=== PATIENT | male | born 1995 | race African-American/Black ===

== ENCOUNTER 2016-11-11 17:59 | Emergency (ER) | payer SELFPAY ==
[~2016-11-11] VITALS: Wt 83.9 kg
== END 2016-11-11 20:04 | disposition home or self-care (01) ==
LOC: ED 17:59
DX: S63.257A Unspecified dislocation of left little finger, initial encounter (principal); F17.200 Nicotine dependence, unspecified, uncomplicated; W21.05XA Struck by basketball, initial encounter; Y93.67 Activity, basketball; Y92.89 Other specified places as the place of occurrence of the external cause; Y99.9 Unspecified external cause status

== ENCOUNTER 2017-02-02 05:47 | Emergency (ER) | payer SELFPAY ==
[~2017-02-02] VITALS: Ht 172.7 cm; Wt 81.6 kg
[2017-02-02] MEDS ORDERED: Motrin,Rufen800 MG PO (07:40)
== END 2017-02-02 07:47 | disposition home or self-care (01) ==
LOC: ED 05:47
DX: S62.001A Unspecified fracture of navicular [scaphoid] bone of right wrist, initial encounter for closed fracture (principal); F17.200 Nicotine dependence, unspecified, uncomplicated; X50.9XXA Other and unspecified overexertion or strenuous movements or postures, initial encounter; Y93.89 Activity, other specified; Y92.9 Unspecified place or not applicable; Y99.9 Unspecified external cause status

== ENCOUNTER 2017-04-28 20:35 | Emergency (ER) | payer SELFPAY ==
[~2017-04-28] VITALS: Ht 177.8 cm; Wt 83.9 kg
[~2017-04-28 20:35] MED LIST: Motrin,Rufen800 MG PO
[2017-04-28] MEDS ORDERED: DELTASONE20 M1 PO (21:24)
== END 2017-04-28 20:48 | disposition home or self-care (01) ==
LOC: ED 20:35
DX: R21 Rash and other nonspecific skin eruption (principal); F17.200 Nicotine dependence, unspecified, uncomplicated

== ENCOUNTER 2017-05-03 09:12 | Emergency (ER) | payer SELFPAY ==
[~2017-05-03 09:12] MED LIST changes: +DELTASONE20 M1 PO
[2017-05-03] MEDS ORDERED: NAPROSYN500 MG PO ×2 (09:22→09:27)
== END 2017-05-03 10:00 | disposition left against medical advice (07) ==
LOC: ED 09:12
DX: M79.641 Pain in right hand (principal); M25.531 Pain in right wrist; F17.200 Nicotine dependence, unspecified, uncomplicated

== ENCOUNTER 2018-11-03 10:20 | Emergency (ER) | payer SELFPAY ==
[~2018-11-03] VITALS: Ht 180.3 cm; Wt 94.3 kg
[~2018-11-03 10:20] MED LIST changes: +NAPROSYN500 MG PO
[2018-11-03 10:32] LABS: BILIRUBIN NEGATIVE (NEGATIVE); BLOOD TRACE-LYSED (NEGATIVE); CLARITY CLEAR (CLEAR); COLOR YELLOW (YELLOW); GLUCOSE NEGATIVE (NEGATIVE); KETONE TRACE (NEGATIVE); LEUKO ESTERASE NEGATIVE (NEGATIVE); NITRITE NEGATIVE (NEGATIVE); SPECIFIC GRAVITY 1.025 (1.005-1.030); UROBILINOGEN 0.2 E.U./dl (0.2-1.0)
[2018-11-03 10:47] LABS: MUCOUS 2+
[2018-11-04 21:03] LABS: GONOCOCCUS BY NAA Negative (Negative)
== END 2018-11-03 10:42 | disposition home or self-care (01) ==
LOC: ED 10:20
PROVIDERS: Nurse Practitioner Family
DX: Z11.3 Encounter for screening for infections with a predominantly sexual mode of transmission (principal); Z72.51 High risk heterosexual behavior

== ENCOUNTER 2019-02-17 20:11 | Emergency (ER) | payer SELFPAY ==
[~2019-02-17] VITALS: Wt 86.2 kg
[2019-02-17 21:00] LABS: BILIRUBIN NEGATIVE (NEGATIVE); BLOOD TRACE-INTACT (NEGATIVE); CLARITY SL CLOUDY (CLEAR); COLOR YELLOW (YELLOW); GLUCOSE NEGATIVE (NEGATIVE); KETONE TRACE (NEGATIVE); LEUKO ESTERASE TRACE (NEGATIVE); NITRITE NEGATIVE (NEGATIVE)
[2019-02-17 21:09] LABS: BACTERIA 1+; RBC 0-2 rbc/hpf (0-2); WBC 16-20 wbc/hpf (0-5)
== END 2019-02-17 21:40 | disposition home or self-care (01) ==
LOC: ED 20:11
PROVIDERS: Nurse Practitioner
DX: N39.0 Urinary tract infection, site not specified (principal); Z20.2 Contact with and (suspected) exposure to infections with a predominantly sexual mode of transmission

== ENCOUNTER 2019-08-22 20:10 | Emergency (ER) | payer OTHER, MEDICAID ==
[~2019-08-22] VITALS: Ht 182.8 cm; Wt 86.2 kg
== END 2019-08-22 22:21 | disposition home or self-care (01) ==
LOC: ED 20:10
DX: S82.62XA Displaced fracture of lateral malleolus of left fibula, initial encounter for closed fracture (principal); X50.1XXA Overexertion from prolonged static or awkward postures, initial encounter; Y93.67 Activity, basketball; Y92.310 Basketball court as the place of occurrence of the external cause; Y99.8 Other external cause status

== ENCOUNTER → 2021-07-26 | Outpatient (CLI) | payer OTHER | END | disposition home or self-care (01) | LOC: COVID19 16:22 | PROVIDERS: ATTEND Internal Medicine | DX: Z11.52 Encounter for screening for COVID-19 (principal) ==

== ENCOUNTER 2022-01-18 01:53 | Emergency (ER) | payer OTHER ==
[~2022-01-18] VITALS: Ht 182.8 cm; Wt 72.1 kg
[2022-01-18 02:31] LABS: BILIRUBIN Negative (Negative); BLOOD Negative (Negative); CLARITY Clear (Clear); COLOR Yellow (Yellow); GLUCOSE Negative (Negative); KETONE Negative (Negative); LEUKO ESTERASE 2+ (Negative); NITRITE Negative (Negative); SPECIFIC GRAVITY 1.025 (1.001-1.030)
[2022-01-18 02:42] LABS: WBC 41-50 wbc/hpf (0-5)
== END 2022-01-18 03:46 | disposition home or self-care (01) ==
LOC: ED 01:53
PROVIDERS: Internal Medicine
DX: N39.0 Urinary tract infection, site not specified (principal)

== ENCOUNTER 2022-12-26 17:25 | Emergency (ER) | payer OTHER ==
[~2022-12-26] VITALS: Ht 182.8 cm; Wt 77.1 kg
[2022-12-26 18:07] LABS: BILIRUBIN Negative (Negative); BLOOD Negative (Negative); CLARITY Clear (Clear); COLOR Yellow (Yellow); GLUCOSE Negative (Negative); KETONE Negative (Negative); LEUKO ESTERASE 1+ (Negative); NITRITE Negative (Negative); SPECIFIC GRAVITY 1.025 (1.001-1.030); UROBILINOGEN 0.2 E.U./dl (0.0-1.0)
[2022-12-26 18:21] LABS: BACTERIA TRACE; RBC 0-2 rbc/hpf (0-2); WBC 16-20 wbc/hpf (0-5)
== END 2022-12-26 18:36 | disposition home or self-care (01) ==
LOC: ED 17:25
PROVIDERS: Emergency Medicine
DX: Z20.2 Contact with and (suspected) exposure to infections with a predominantly sexual mode of transmission (principal); R39.11 Hesitancy of micturition; R36.9 Urethral discharge, unspecified